=== PATIENT | female | born 1990 | race Caucasian/White ===

== ENCOUNTER 2024-05-27 17:47 | Emergency (ER) | payer OTHER, SELFPAY ==
[2024-05-27 17:52] VITALS: BP 129/87; PULSE 104; RESP 18; TEMP 36.4; O2SAT 100; BMI 46.5
--- NOTE | 2024-05-27 18:01 | DI.RAD.S_ITS ---
PROCEDURE: XR CHEST 1V INDICATIONS: chest pain TECHNIQUE: One view of the chest was acquired. COMPARISON: None. FINDINGS: Surgical changes and devices: None. Lungs and pleura: Lungs are clear. No pleural effusions or pneumothorax. Mediastinum: Mediastinal contours appear normal. Heart size is normal. Bones and chest wall: No suspicious bony lesions. Overlying soft tissues appear unremarkable. IMPRESSION: No acute cardiothoracic process. Dictated by: Moshe Hernández M.D. on 05/27/2024 at 19:03 Approved by: Moshe Hernández M.D. on 05/27/2024 at 19:03
--- NOTE | 2024-05-27 18:01 | EKG_ITS ---
[address] [address] Test Date: 2024-05-27 Pat Name: Jessica Velez Department: [facility] Room: Gender: Female [employer]ber Sprinkler: KARLI SIDDIQUI : 1990 Requested By: Order Number: [id number] Reading MD: Mike Rowell Measurements Intervals [place] Rate: 114 P: 51 MT: 144 QRS: 43 QRSD: 80 T: 21 QT: 320 QTc: 441 Interpretive Statements Sinus tachycardia Electronically Signed On 05-28-2024 19:42:53 PST by Mike Rowell
--- NOTE | 2024-05-27 18:01 | PC.NURSE ---
Had patient ambulate on monitor in triage, tachycardia increased to 132 and patient because increasingly short of breath. At rest lowest HR was 104 BPM.
[2024-05-27 19:20] LABS: Add Manual Diff / Slide Review NO; Basophils Absolute Auto 200 /uL (0-100); Basophils Percent Auto 1.4 % (0-2); Eosinophils Absolute Auto 100 /uL (0-450); Eosinophils Percent Auto 0.7 % (2-4); Hematocrit 39.1 % (36-46); Lymphocytes Absolute Auto 3900 /uL (1100-4500); Lymphocytes Percent Auto 25.1 % (25-40); Mean Corpuscular HGB Conc 33.2 % (30-36); Mean Corpuscular Volume 84.2 fL (80-100); Monocytes Absolute Auto 900 /uL (0-900); Monocytes Percent Auto 5.5 % (3-14); Neutrophils Absolute Auto 10500 /uL (1500-7000); Neutrophils Percent Auto 67.3 % (50-75); Platelet Count 312 X10^3/uL (150-400); Red Blood Cell Count 4.65 X10^6/uL (4.0-5.2); Red Cell Distribution Width 14.1 % (11.6-14.8); White Blood Cell Count 15.6 X10^3/uL (4.5-11.0)
[2024-05-27 19:24] LABS: INR 1.1 (0.9-1.3); Prothrombin Time 12.7 SECONDS (9.4-12.5)
[2024-05-27 19:25] LABS: HEMOLYSIS < 15 (0-50)
[2024-05-27 19:27] LABS: PTT Partial Thromboplastin Tim 37 SECONDS (25.1-36.5)
[2024-05-27 19:30] LABS: Alanine Aminotransferase 66 IU/L (<35); Albumin 4.8 g/dL (3.5-5.0); Albumin Globulin Ratio 1.3 (1.0-2.8); Alkaline Phosphatase 75 U/L (38-126); Aspartate Aminotransferase 44 IU/L (14-36); BUN Creatinine Ratio 21.4 (6-22); Bilirubin Total 0.5 mg/dL (0.2-1.3); Blood Urea Nitrogen 15 mg/dL (7-17); Calcium 9.6 mg/dL (8.4-10.2); Carbon Dioxide 21 mmol/L (22-32); Chloride 104 mmol/L (98-107); Creatine Kinase 83 U/L (30-135); Estimated Glomerular Filt Rate > 60 mL/min (>60); Globulin 3.6 g/dL (1.7-4.1); Glucose 115 mg/dL (70-100); Lipase 57 U/L (23-300); Magnesium 1.7 mg/dL (1.6-2.3); Potassium 3.9 mmol/L (3.4-5.1); Sodium 136 mmol/L (137-145); Total Protein 8.4 g/dL (6.3-8.2)
[2024-05-27 19:35] LABS: D Dimer < 215 ng/ml (<500)
[2024-05-27 19:41] LABS: Troponin I < 0.012 ng/mL (0.01-0.034)
[2024-05-27 19:56] VITALS: BP 157/87; PULSE 95; O2SAT 94
[2024-05-27 20:31] LABS: NT-proBNP (BNP-Adult 18+) < 20 pg/mL (<125)
[2024-05-27 20:42] VITALS: BP 146/80; PULSE 107; RESP 19; O2SAT 99
[2024-05-27 21:00] VITALS: PULSE 95; RESP 23; O2SAT 99
[2024-05-27 21:01] VITALS: BP 117/67; PULSE 96; RESP 23; O2SAT 99
[2024-05-27 21:30] VITALS: BP 125/74; PULSE 99; RESP 20; O2SAT 99
--- NOTE | 2024-05-27 21:31 | ED_ITS ---
HPI - Arrhythmia/Palpitations General Chief Complaint: Arrhythmia/Palpitations Stated Complaint: SOB, abd swelling Time Seen by Provider: 05/27/24 21:17 Source: patient Mode of arrival: Ambulatory History of Present Illness HPI narrative: Patient was a 33-year-old female. History of asthma. Does have a nebulizer at home. For the past several days if not longer she was had episodes of shortness of breath specifically with exertion and talking. She has been using her nebulizer at home without improvement. No chest pain. She does feel like her abdomen is swelling. No lower extremity swelling. No fevers. No cough. No sore throat. Does not have a primary care doctor. History diabetes. Related Data Previous Rx's Medication Instructions Recorded prednisone 20 mg tablet 20 mg PO DAILY #6 tabs 05/27/24 propranolol 10 mg tablet 10 mg PO BID PRN tachycardia #30 05/27/24 tabs Allergies Allergy/AdvReac Type Severity Reaction Status Date / Time ibuprofen AdvReac Tachycardia Verified 05/27/24 17:52 ketorolac [From Toradol] AdvReac Tachycardia Verified 05/27/24 17:52 Review of Systems Review of Systems ROS Unobtainable: All systems reviewed & are unremarkable except as noted in HPI and below Patient History Social History Smoking Status: Former smoker Smoking Status: Former smoker Exam Initial Vital Signs Initial Vital Signs: Vital Signs Temperature 97.6 F 05/27/24 17:52 Pulse Rate 104 H 05/27/24 17:52 Respiratory Rate 18 05/27/24 17:52 Blood Pressure 129/87 05/27/24 17:52 Pulse Oximetry 100 05/27/24 17:52 Oxygen Delivery Method Room Air 05/27/24 17:52 Const General: cooperative, comfortable and No ill appearing HENCO Head: normal to inspection and normocephalic Resp Effort & Inspection: normal respiratory effort Auscultation: clear to auscultation bilaterally Cardio Rate: regular rate Rhythm: regular rhythm GI Inspection: normal to inspection and non-distended Palpation: soft, No firm and No tender Skin General: no rashes or lesions noted Neuro General: patient alert, patient awake and moves all extremities Extrem General: normal to inspection and capillary refill normal Course Orders Ordered: ED Orders 05/27/24 19:05 Complete Blood Count AUTO DIFF Stat Comprehensive Metabolic Panel Stat D Dimer Stat Lipase Stat Magnesium Stat NT-proBNP (BNP-Adult 18+) Stat PTT Partial Thromboplastin Jerry Stat Prothrombin Time INR Stat Troponin & CK Cardiac Panel Stat Discontinued Medications Prednisone (Prednisone 20 Mg Tablet) 20 mg PO NOW ONE Stop: 05/27/24 21:33 Last Admin: 05/27/24 21:38 Dose: 20 mg Documented By: RASTA Propranolol HCl (Propranolol 10 Mg Tablet) 10 mg PO NOW ONE Stop: 05/27/24 21:33 Last Admin: 05/27/24 21:38 Dose: 10 mg Documented By: RASTA Vital Signs Vital signs: Vital Signs - 8 hr 05/27/24 20:42 05/27/24 20:42 05/27/24 21:00 Pulse Rate 107 H 95 H Respiratory Rate 19 23 Blood Pressure 146/80 H Pulse Oximetry 99 99 Oxygen Delivery Method Room Air 05/27/24 21:01 05/27/24 21:01 05/27/24 21:30 Pulse Rate 96 H Respiratory Rate 23 Blood Pressure 117/67 125/74 Pulse Oximetry 99 Oxygen Delivery Method 05/27/24 21:30 Pulse Rate 99 H Respiratory Rate 20 Blood Pressure Pulse Oximetry 99 Oxygen Delivery Method Room Air MDM - Arrhythmia/Palpitations Lab Data Attestation: I reviewed the patient's lab results. 05/27/24 19:05 05/27/24 19:05 Labs: Lab Results 05/27/24 Range/Units 19:05 WBC 15.6 H (4.5-11.0) X10^3/uL RBC 4.65 (4.0-5.2) X10^6/uL Hgb 13.0 (12.0-16.0) g/dL Hct 39.1 (36-46) % MCV 84.2 (80-100) fL MCH 28.0 (26-34) PG MCHC 33.2 (30-36) % RDW 14.1 (11.6-14.8) % Plt Count 312 (150-400) X10^3/uL Neut % (Auto) 67.3 (50-75) % Lymph % (Auto) 25.1 (25-40) % [place]mullen % (Auto) 5.5 (3-14) % Eos % (Auto) 0.7 L (2-4) % Baso % (Auto) 1.4 (0-2) % Neut # (Auto) 89276 H (2680-6824) /uL Lymph # (Auto) 3900 (4406-1106) /uL Mcmullen # (Auto) 900 (0-900) /uL Eos # (Auto) 100 (0-450) /uL Baso # (Auto) 200 H (0-100) /uL PT 12.7 H (9.4-12.5) SECONDS INR 1.1 (0.9-1.3) APTT 37 H (25.1-36.5) SECONDS D-Dimer < 215 (<500) ng/ml Sodium 136 L (137-145) mmol/L Potassium 3.9 (3.4-5.1) mmol/L Chloride 104 (98-107) mmol/L Carbon Dioxide 21 L (22-32) mmol/L BUN 15 (7-17) mg/dL Creatinine 0.70 (0.52-1.04) mg/dL Estimated GFR > 60 (>60) mL/min BUN/Creatinine Ratio 21.4 (6-22) Glucose 115 H (70-100) mg/dL Calcium 9.6 (8.4-10.2) mg/dL Magnesium 1.7 (1.6-2.3) mg/dL Total Bilirubin 0.5 (0.2-1.3) mg/dL AST 44 H (14-36) IU/L ALT 66 H (<35) IU/L Alkaline Phosphatase 75 (38-126) U/L Total Creatine Kinase 83 (30-135) U/L Troponin I < 0.012 (0.01-0.034) ng/mL NT-Pro-B Natriuret Pep < 20 (<125) pg/mL Total Protein 8.4 H (6.3-8.2) g/dL Albumin 4.8 (3.5-5.0) g/dL Globulin 3.6 (1.7-4.1) g/dL Albumin/Globulin Ratio 1.3 (1.0-2.8) Lipase 57 (23-300) U/L Urine Dip Bedside Urine Glucose Negative Bedside Urine Bilirubin - Negative Bedside Urine Ketone - Negative Urine Specific [place] 1.020 Bedside Urine Occult Blood - Negative Bedside Urine pH 5.5 Bedside Urine Protein - Negative Bedside Urine Urobilinogen - Negative Bedside Urine Nitrite - Negative Bedside Urine Leukocytes - Negative Esterase Imaging Data Chest x-ray: Radiologist's Impresson: PROCEDURE: XR CHEST 1V INDICATIONS: chest pain TECHNIQUE: One view of the chest was acquired. COMPARISON: None. FINDINGS: Surgical changes and devices: None. Lungs and pleura: Lungs are clear. No pleural effusions or pneumothorax. Mediastinum: Mediastinal contours appear normal. Heart size is normal. Bones and chest wall: No suspicious bony lesions. Overlying soft tissues appear unremarkable. IMPRESSION: No acute cardiothoracic process. ECG Data Attestation: I personally reviewed and interpreted this ECG as follows: Interpretation: Sinus tachycardia Ventricular rate 114 Normal axis Normal QRS Normal QTC No ST T wave changes MDM Narrative Medical decision making narrative: Patient was have a leukocytosis of 15 but no other specific source of infection. Lungs are clear. Chest x-ray shows no signs of pneumonia. Sinus tachycardia on the EKG. Her symptoms have been present for several days if not longer. Low suspicion for ACS. There was no indication for antibiotics based on her exam today. Will place the patient on propranolol she has been on this in the past and that does seem to help. We discussed the importance of following up with primary doctor and most likely requiring a Holter monitor. She was given a phone number that she can contact help establish a primary doctor. Will discharge patient home with return precautions. She expressed understanding and agreement with the plan. Discharge Plan Departure Patient Disposition: Home Clinical Impression: Shortness of breath, Tachycardia Instructions: DI for Tachycardia Activity Restrictions/Additional Instructions: Continue to take all of your medications as directed. You do require follow-up with the primary care doctor. You can contact [phone] during business hours to help he was establish a doctor in the local area. Return to the emergency department for new symptoms. Prescriptions: New propranolol 10 mg tablet 10 mg PO BID PRN (Reason: tachycardia) Qty: 30 0RF prednisone 20 mg tablet 20 mg PO DAILY Qty: 6 0RF Referrals: Miscellaneous,DoctorMD [Primary Care Provider] - Stand Alone Forms: Patient Portal/API/Survey
[2024-05-27] MEDS: PROPRANOLOL 10 MG TABLET PO (21:38)
[2024-05-27] MEDS: predniSONE 20 MG TABLET PO (21:38)
== END 2024-05-27 21:50 | disposition home or self-care (01) ==
PROVIDERS: Emergency Provider Emergency Medicine
DX: R06.02 Shortness of breath (principal); R00.0 Tachycardia, unspecified; Z87.09 Personal history of other diseases of the respiratory system
CPT/HCPCS: 36415; 71045; 80053; 81003; 82550; 83690; 83735; 83880; 84484; 85025; 85379; 85610; 85730; 93005; 99284